=== PATIENT | male | born 2000 | race Caucasian/White ===

== ENCOUNTER → 2020-08-23 12:03 | Outpatient (CLI) | payer OTHER, SELFPAY ==
--- NOTE | 2020-08-23 | DI.ECHO.S_ITS ---
[facility] +---------+ : : [address] : : [place] : : : : [id number] : : : : Phone: [phone]---------+ Echocardiogram Report + + :Name: RICKY CAMERON Study Date: 08/23/2020 Height: 74 in : :[facility] ReadingLocation: Weight: 165 lb : : Gender: Male BSA: 2.0 m2 : :: 2000 Age: 20 yrs BP: 147/89 mmHg: :Reason For Study: HYPERTENSION, MARFANOID HABITUS : :Ordering Physician: VIDHI, : :MATTHEW Overton MD Performed By: Tia Robert : :Referring: MATTHEW MOSHER MD : + + Interpretation Summary Left ventricular systolic function appears normal with an estimated ejection fraction of 60 to 65% without any focal wall motion abnormality. Diastolic function is likely normal with normal filling pressures. The right ventricle appears normal in size and systolic function. Right ventricular systolic pressure cannot be estimated but CVP is likely around 3 mmHg. Both atria are normal in size. While the aortic valve leaflets are not well visualized, there is no obvious valvular abnormality. There is no evidence for any mitral valve prolapse. While the ascending aorta is not well seen, it grossly appears normal in size. Procedure: A two-dimensional transthoracic echocardiogram with color flow and Doppler was performed. The study quality was technically adequate. There is no prior echocardiogram noted for this patient. The patient was in sinus rhythm with heart rates between 60-85 bpm during the exam. Left Ventricle: The left ventricle appears normal in size, wall thickness, and systolic function without any focal wall motion abnormalities. The ejection fraction is estimated to be 60-65%. Diastolic parameters suggest probable normal left ventricular diastolic function and normal filling pressures. Right Ventricle: The right ventricle is normal in size and function. Atria: Both atria are normal in size. There is no Doppler evidence for an interatrial shunt. Mitral Valve: The mitral valve is normal in structure and function. There is trace mitral regurgitation. Aortic Valve: The aortic valve is not well visualized. The aortic valve opens well. There is no aortic valve stenosis. No aortic regurgitation is present. Tricuspid Valve: The tricuspid valve is normal in structure and function. No tricuspid regurgitation. Pulmonary artery pressures cannot be estimated because of the lack of a measurable TR jet velocity but the IVC suggests a CVP of around 3 mmHg. Pulmonic Valve: The pulmonic valve leaflets are thin and pliable; valve motion is normal. There is no pulmonic valvular regurgitation. There is no significant valvular heart disease. Great Vessels: The aortic root is normal size. The ascending aorta is not well seen but grossly appears to be normal in size. The IVC is of normal diameter and collapses greater than 50% with a sniff. This suggests a low right atrial pressure of 3 mm Hg. Pericardium/ Pleura There is no pericardial effusion. There is no pleural effusion. MMode/2D Measurements & Calculations LVIDd: 4.4 cm LVOT diam: 2.0 cm LVIDs: 3.0 cm Ao root diam: 2.7 cm FS: 31.9 % Ao Arch Diam (Prox Trans): 2.7 cm IVSd: 0.85 cm LVPWd: 0.84 cm LV jones. diameter/BSA (cm/m^2): 2.2 LV sys. diameter/BSA (cm/m^2): 1.5 LA A2 area: 13.8 cm2 RA long axis: 3.1 cm LA A4 area: 14.6 cm2 RA area: 9.4 cm2 LA length (vol): 4.4 cm RA vol: 24.3 ml LA vol: 39.1 ml RA : 12.1 ml/m2 LA vol index: 19.5 ml/m2 IVC diam: 1.4 cm RVD1 (basal): 3.4 cm TAPSE: 2.0 cm Doppler Measurements & Calculations Ao V2 max: 102.8 cm/sec LVOT Max Marcell: 86.8 cm/sec Ao V2 mean: 66.1 cm/sec LV V1 max P.0 mmHg Ao max P.2 mmHg LV V1 VTI: 16.8 cm Ao mean P.1 mmHg ALEX(I,D): 3.0 cm2 Ao V2 VTI: 17.9 cm ALEX(V,D): 2.7 cm2 sev ratio: 0.94 ALEX indexed to BSA (cm^2/m^2): 1.5 MV E max marcell: 68.9 cm/sec PA V2 max: 74.5 cm/sec MV A max marcell: 66.6 cm/sec PA V2 mean: 47.1 cm/sec MV E/A: 1.0 PA mean P.0 mmHg Med Peak E' Marcell: 14.1 cm/sec PA pr(Accel): 25.9 mmHg E/E' med: 4.9 Lat Peak E' Marcell: 18.2 cm/sec E/E' lat: 3.8 E/e' average: 4.3 MV dec time: 0.21 sec [facility] 54.0 ml Reading Physician:02:[id number] PM
== END ==
PROVIDERS: PCP Student in an Organized Health Care Education/Training Program; Referring Provider Student in an Organized Health Care Education/Training Program; Visit Provider Student in an Organized Health Care Education/Training Program
DX: Q87.43 Marfan syndrome with skeletal manifestation (principal); I10 Essential (primary) hypertension
CPT/HCPCS: 93306

== ENCOUNTER → 2020-09-23 13:05 | Outpatient (CLI) | payer OTHER, SELFPAY ==
--- NOTE | 2020-09-23 13:07 | DI.MRI.S_ITS ---
PROCEDURE: MR ANGIO ABDOMEN WO/W CON INDICATIONS: RENAL AGENESIS TECHNIQUE: Precontrast axial and coronal TruFISP through the abdomen. Dynamic coronal MRA using Care Bolus timing during the administration of contrast. Post-contrast axial VIBE through the kidneys. 3-dimensional maximum intensity projection (MIP) reformats constructed. COMPARISON: None. FINDINGS: Image quality: Excellent. Renal arteries: Single right renal artery with early branch suspected. Left renal artery is absent. Abdominal aorta: Aorta is normal in caliber, and is patent. Mesenteric arteries: Celiac trunk, superior and inferior mesenteric arteries are widely patent. Extravascular soft tissues: Absent left kidney. 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 Right kidney measures 13.4 cm in craniocaudal dimension consistent with compensatory hypertrophy. No hydronephrosis. Borderline splenomegaly with the spleen measuring 13.3 cm. Visualized solid organs otherwise appear normal in size on limited pre-contrast images. No retroperitoneal or mesenteric adenopathy by size criteria. Bowel loops are normal in caliber. No free fluid. No ventral hernias. Bones: Marrow demonstrates normal overall signal. 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 Borderline splenomegaly. Dictated by: Aaron Munoz M.D. on 09/23/2020 at 14:46 Approved by: Aaron Munoz M.D. on 09/23/2020 at 14:52
== END ==
PROVIDERS: PCP Student in an Organized Health Care Education/Training Program; Referring Provider Student in an Organized Health Care Education/Training Program; Visit Provider Student in an Organized Health Care Education/Training Program
DX: Q60.0 Renal agenesis, unilateral (principal)
CPT/HCPCS: C8902; A9579